=== PATIENT | male | born 1955 ===

== ENCOUNTER 2017-12-15 22:17 | Emergency (ER) | payer OTHER ==
[2017-12-15 22:21] VITALS: BMI 34.1
--- NOTE | 2017-12-15 22:33 | ED PDOC ---
Arrival/HPI - General Chief Complaint: Alcohol Ingestion Time Seen by Provider: 12/15/17 22:21 Historian: Patient - History of Present Illness Narrative History of Present Illness (Text): you were treated in the ED today for admitted alcohol use, vodka and otherwise without any head injury/neck pain/loss of consciousness/nausea/vomiting/headache /dizziness/difficulty breathing/chest pain/abdomen pain/numbness/tingling/loss of limb function/pain with urination/thoughts to harm yourself or others or hallucinations. 12/15/17 22:30 Time/Duration: 4-6 hours Symptom Onset: Gradual Symptom Course: Improving Quality: Other (no pain) Activities at Onset: Rest Context: Sitting Past Medical History - Provider Review Nursing Documentation Reviewed: Yes - Travel History Have you recently traveled outside [place] w/in the past 3 mons?: No - Psychiatric Hx Substance Use: No - Anesthesia Hx Anesthesia: No Family/Social History - Physician Review Nursing Documentation Reviewed: Yes Family/Social History: No Known Family HX Smoking Status: Never Smoked Hx Alcohol Use: No Hx Substance Use: No Allergies/Home Meds Allergies/Adverse Reactions: Allergies No Known Allergies Allergy (Verified 12/15/17 22:27) Home Medications: Home Meds Medication Instructions Recorded Confirmed No Known Home Med 12/15/17 12/15/17 Review of Systems - Review of Systems Constitutional: Normal Eyes: Normal ENT: Normal Respiratory: Normal Cardiovascular: Normal Gastrointestinal: Normal Genitourinary Male: Normal Musculoskeletal: Normal Skin: Normal Neurological: Normal Endocrine: Normal Hemo/Lymphatic: Normal Psychiatric: Normal Physical Exam Vital Signs Temp Pulse Resp BP Pulse Ox 12/15/17 22:40 98.2 F 84 18 118/69 95 Appearance: Positive for: Well-Appearing, Non-Toxic, Comfortable Pain Distress: None Mental Status: Positive for: Alert and Oriented X 3 - Systems Exam Head: Present: Atraumatic, Normocephalic Pupils: Present: PERRL Extroacular Muscles: Present: EOMI Conjunctiva: Present: Normal Ears: Present: Normal Mouth: Present: Moist Mucous Membranes Pharnyx: Present: Normal Nose (External): Present: Atraumatic Nose (Internal): Present: Normal Inspection Neck: Present: Normal Range of Motion, Other (no c-t-l spinal or paraspinal tenderness) Respiratory/Chest: Present: Clear to Auscultation, Good Air Exchange Cardiovascular: Present: Regular Rate and Rhythm Abdomen: No: Tenderness, Distention, Normal Bowel Sounds, Peritoneal Signs, Rebound, Guarding, McBurney's Point Tender, Rovsing's Sign Present, Hernias, Feeding Tubes, Ostomy Tubes, Mass/Organomegaly, Scars, Other Back: Present: Normal Inspection Upper Extremity: Present: Normal Inspection Lower Extremity: Present: Normal Inspection Neurological: Present: GCS=15, CN II-XII Intact, Speech Normal, Motor Func Grossly Intact Skin: Present: Warm, Normal Color Psychiatric: Present: Alert, Oriented x 3, Normal Insight, Normal Concentration Medical Decision Making ED Course and Treatment: you were treated in the ED today for admitted alcohol use, vodka and otherwise without any head injury/neck pain/loss of consciousness/nausea/vomiting/headache /dizziness/difficulty breathing/chest pain/abdomen pain/numbness/tingling/loss of limb function/pain with urination/thoughts to harm yourself or others or hallucinations. You were otherwise breathing easily, pink moist lips, smiling and talking easily, good strength/sensation, alert/oriented, walking easily, clear lungs, no abdomen tenderness, no fever temp 98.2, stable heart rate 84, stable breathing rate 18, excellent oxygen level 95% room air, elevated blood pressure 118/69 which we recommend repeat in 2-3 days primary care office to determine further treatment, observation done in the ED with improvement/sober/ walking easily/alert/oriented, counselled to stop drinking alcohol and thus discharged home. 1. Recommend follow-up primary care 2-3 days to review symptoms , referral to detoxification clinic for alcohol. 3. If any worsening pain, fever , chills, nausea, vomiting, difficulty breathing, numbness, loss of limb function, pain with urination or any medical condition then return to the ED. Reassessment Condition: Improved Disposition/Present on Arrival - Present on Arrival Any Indicators Present on Arrival: No History of DVT/PE: No History of Uncontrolled Diabetes: No Urinary Catheter: No History of Decub. Ulcer: No History Surgical Site Infection Following: None - Disposition Have Diagnosis and Disposition been Completed?: Yes Diagnosis: Alcohol abuse Disposition: HOME/ ROUTINE Disposition Time: 04:28 Patient Plan: Discharge Condition: IMPROVED Discharge Instructions (ExitCare): Alcohol Abuse and Alcoholism (DC), Effects of Alcohol on Your Health Additional Instructions: you were treated in the ED today for admitted alcohol use, vodka and otherwise without any head injury/neck pain/loss of consciousness/nausea/vomiting/headache /dizziness/difficulty breathing/chest pain/abdomen pain/numbness/tingling/loss of limb function/pain with urination/thoughts to harm yourself or others or hallucinations. You were otherwise breathing easily, pink moist lips, smiling and talking easily, good strength/sensation, alert/oriented, walking easily, clear lungs, no abdomen tenderness, no fever temp 98.2, stable heart rate 84, stable breathing rate 18, excellent oxygen level 95% room air, elevated blood pressure 118/69 which we recommend repeat in 2-3 days primary care office to determine further treatment, observation done in the ED with improvement/sober/ walking easily/alert/oriented, counselled to stop drinking alcohol and thus discharged home. 1. Recommend follow-up primary care 2-3 days to review symptoms , referral to detoxification clinic for alcohol. 3. If any worsening pain, fever , chills, nausea, vomiting, difficulty breathing, numbness, loss of limb function, pain with urination or any medical condition then return to the ED. Referrals: [facility] eKvin Carter, [Primary Care Provider] - Follow up with primary Forms: [employer] ([place]ian)
[2017-12-15 22:40] VITALS: TEMP 98.2
[2017-12-16 04:30] VITALS: BP 118/79; PULSE 68; RESP 17; O2SAT 99
== END 2017-12-16 06:29 | disposition home or self-care (01) ==
LOC: ED 22:17
DX: F10.10 Alcohol abuse, uncomplicated (principal)